=== PATIENT | female | born 1995 | race Caucasian/White ===

== ENCOUNTER 2016-04-12 14:54 | Emergency (ER) | payer BC, MEDICAID ==
[~2016-04-12] VITALS: Ht 165.1 cm; Wt 81.6 kg
[~2016-04-12 14:54] MED LIST: MOTRIN 400MG.400 MG PO; NOMEDS XX; OMEPRAZOLE20 MG PO; PERCOCET 5/3251 EACH PO; PRENATAL PLUS1 TA1 PO; SPRINTEC 35 MCG1 TAB PO; ZANTAC 150150 MG PO; ZOFRAN4 MG PO
--- NOTE | 2016-04-12 15:37 | Emergency Room Report ---
History of Present Illness Time Seen by [id number] Presenting Problem in Triage Pt arrived:Walked Presenting Problem:PT STATES BEING SEVERAL DAYS AGO AND WAS TOLD HER GALLBLADDER HAS SLUDGE IN IT. PT STATES VOMITING THAT BEGAN TODAY BUT WAS NAUSEATED TODAY. STATES PAIN TO RIGHT SIDE OF ABDOMEN. DENIES DIARRHEA TODAY. STATES APPT WITH DR GUZMAN ON BUT STATES SHE CANNOT WAIT THAT LONG. 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 N Clinical Suspician of Infection? N Mental Status: 1 - Regular (Normal Baseline) Sepsis Risk:Low Sepsis Risk Have you (or family members/close friends) recently traveled outside the [place]? N If Yes, where/when: Have you had exposure to infectious disease within the past month? N TB? Other? Specify: 20 years old 3 months recently diagnosed with gallbladder sludge by ultrasound on April 10, 2016. She continues to have RIGHT upper quadrant pain vomiting and diarrhea she presented to the ED because of decreased po intake. Source patient Exam Limitations no limitations ALLERGIES Coded Allergies: No Known Allergies (04/10/16) Home Medications Reported Medications NORGESTIMATE-ETHINYL ESTRADIOL (Sprintec 28 Day Tablet) 1 TAB PO DAILY History Medical History General CAD? No Angina: No ND: No Hypertension? No Hyperlipidemia? No CHF? No DVT? No PE? No COPD? No Asthma? No Anemia? No GERD? No Gastric ulcers? No GI Bleed? No Hernia? No Thyroid Problems? No Hypothyroidism? No CVA? No Seizures? No Diabetes? No Renal Insuffiency? No End Stage Renal Disease? No UTI? No Stones? No BPH? No GB Disease: No Nephritic Syndrome? No Asplenia? No Hepatitis? No Sickle Cell Disease? No Arthritis? No Migraines? No Cataracts? No Glaucoma? No MRSA? No HIV? No TB? No Anxiety? No Depression? No Cancer? No More? 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 Respiratory no symptoms reported Cardiovascular no symptoms reported Gastrointestinal see HPI, nausea, vomiting Genitourinary no symptoms reported. Musculoskeletal no symptoms reported Skin no symptoms reported Psychiatric/Neurological no symptoms reported Physical Exam Vital Signs Vital Signs Date Time Temp Pulse Resp B/P Pulse O2 O2 Flow FiO2 Ox Delivery Rate 04/12 1547 20 04/12 1505 97.8 72 20 140/88 99 04/12 1458 97.8 72 20 140/88 99 - WBC >12,000 or <4,000 or 10% bands? 2 or more SIRS Criteria Met? B/P:140/88 MAP:105 Creatinine >2.0? UA output<0.5ml/kg/hr for 2 hrs? Platelet count >100,000? Lactate >2.0mmol/1? INR >1.2 or PTT > than 60 sec? Evidence of Organ Dysfunction? Provider documented clinical suspician of infection? N Sepsis Criteria Count: 1 Sepsis Risk: Low Sepsis Risk General Appearance normal appearance, WD/WN Eye Exam - bilateral eye normal exam, bilateral eye PERRL, bilateral eye EOMI Ear, Nose, Throat hearing grossly normal, normal ENT inspection Neck normal inspection, non-tender, supple, full range of motion Respiratory Status Yes: trachea midline, chest symmetrical, non tender chest. No: respiratory distress. Lung Sounds bilateral: normal breath sounds, lungs clear. 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 No Results/Orders Laboratory Tests 04/12/16 1544: Magnesium 1.8 04/12/16 1544: Sodium 140, Potassium 4.1, Chloride 104, Carbon Dioxide 29, BUN 12, Creatinine 0.8, Estimated Creat Clear 146, Estimated GFR (MDRD) 92, Glucose 106, Calcium 9.3, Total Bilirubin 7.5 H, AST 204 H, ALT 392 *H, Alkaline Phosphatase 162 H , Total Protein 7.7, Albumin 3.9, Globulin 3.8 H, Albumin/Globulin Ratio 1.0 L , Lipase Pending, WBC 8.3, RBC 4.33, Hgb 14.4, Hct 39.9, MCV 92.1, RDW 13.7, Plt Count 250, MPV 6.1 L, Gran % 88.2 H, Gran # 7.3, Total Counted 100, Lymphocytes % 8.0 L, Monocytes % 3.4, Eosinophils % 0.3, Basophils % 0.1, Neutrophils 91 H, Band Neutrophils 1, Lymphocytes (Manual) 6 L, Lymphocytes # 0.7, Monocytes (Manual) 1 L, Monocytes # 0.3, Eosinophils # 0.0, Eosinophils # (Manual) 1, Basophils # 0.0, Platelet Estimate NORMAL, Hypochromasia 3+, Stomatocytes 1+, PUBS MCHC 36.1 H, MCH 33.2 H Current Medication Orders Sig/Miya Start time Last Medication Dose Route Stop Time Status Admin Famotidine 20 MG ONCE ONE 04/12 1600 DC 04/12 IV 04/12 1601 1551 Sodium Chloride 10 ML PRN PRN 04/12 1600 AC 04/12 IV 04/13 1546 1551 Sodium Chloride 8 ML ONCE ONE 04/12 1600 DC 04/12 IV 04/12 1601 1551 Famotidine 20 MG ONCE ONE 04/12 1545 CAN NG 04/12 1546 Ketorolac 30 MG ONCE ONE 04/12 1545 DC 04/12 Tromethamine IV 04/12 1546 1547 Ondansetron HCl 4 MG ONCE ONE 04/12 1545 DC 04/12 IV 04/12 1546 1548 Sodium Chloride 1,000 ML .Q1H1M 04/12 1545 AC 04/12 IV 04/12 1645 1548 Sodium Chloride 10 ML PRN PRN 04/12 1545 AC IV 04/13 1533 Famotidine 0 .STK-MED ONE 04/12 1537 DC IV Ketorolac 0 .STK-MED ONE 04/12 1537 DC Tromethamine .ROUTE Ondansetron HCl 0 .STK-MED ONE 04/12 1537 DC .ROUTE Sodium Chloride 1,000 ML .STK-MED ONE 04/12 1537 DC IV Orders Procedure Date/time Status IV SALINE LOCK 04/12 1546 Active DIFFERENTIAL-WBC 04/12 1544 Complete MAGNESIUM 04/12 1533 Complete LIPASE 04/12 1533 Active CBC WITH AUTO DIFF 04/12 153 Complete CHEM 12 PROFILE 04/12 1533 Active Departure Departure Time of Disposition 1536 Disposition Still a Patient Clinical Impression Primary Impression: Gallbladder disease Secondary Impressions: Intractable vomiting, Obstructive jaundice Condition STABLE Referrals [place] CASTANEDA,Brandee (Family) Additional Instructions I called Dr. Guzman advised the patient to be transferred to [facility]. I called and discussed with Dr. Pham who accepted the patient as you can [facility].. Patient was informed and she agrees with the transfer Discharge Counseling Counseled pt/family regarding diagnosis, test results, medications/RX, home care, follow up needs ED Critical Care Critical Care No If Critical Care minutes are documented, the time involved in the performance of seperately reportable procedures was not counted toward critical care time documented. I directly delivered medical care to this critically ill and/or injured patient. Timely evaluation and treatment was necessary to address the significant organ system(s) dysfunction present in this patient. at 1634
[2016-04-12 15:52] LABS: HEMOGLOBIN 14.4 g/dL (12.2-16.2); LYMPH # 0.7 K/mm3 (0.7-4.5)
[2016-04-12 16:24] LABS: NEUTROPHILS 91 % (42-76)
[2016-04-12 16:27] LABS: STOMATOCYTE 1+
[2016-04-12 16:54] VITALS: BP 127/83
== END 2016-04-12 17:24 | disposition still patient (30) ==
LOC: ER 14:54
PROVIDERS: Emergency Medicine
DX: G43.A1 Cyclical vomiting, in migraine, intractable (principal); K83.1 Obstruction of bile duct; K82.0 Obstruction of gallbladder
CPT/HCPCS: J2405

== ENCOUNTER 2016-11-14 12:12 | Emergency (ER) | payer BC, MEDICAID ==
[~2016-11-14] VITALS: Ht 165.1 cm; Wt 77.1 kg
[2016-11-14 12:45] LABS: URINE BILIRUBIN - DIPSTICK NEGATIVE (NEG); URINE BLOOD NEGATIVE (NEG)
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
[2016-11-14 14:31] VITALS: BP 119/75
== END 2016-11-14 14:32 | disposition home or self-care (01) ==
LOC: ER 12:12
PROVIDERS: Emergency Medicine
DX: O26.891 Other specified pregnancy related conditions, first trimester (principal); S39.012A Strain of muscle, fascia and tendon of lower back, initial encounter; S00.83XA Contusion of other part of head, initial encounter; Z3A.10 10 weeks gestation of pregnancy; V47.0XXA Car driver injured in collision with fixed or stationary object in nontraffic accident, initial encounter; Y92.413 State road as the place of occurrence of the external cause

== ENCOUNTER → 2017-01-17 | Outpatient (CLI) | payer BC, MEDICAID | LOC: RAD 13:42 | DX: Z36.0 Encounter for antenatal screening for chromosomal anomalies (principal) ==